=== PATIENT | female | born 1925 | race Caucasian/White ===

== ENCOUNTER 2016-05-29 12:07 | Emergency (ER) | payer OTHER ==
[~2016-05-29 12:07] MED LIST: ASPIRIN ADULT L81 MG PO; COREG6.25 MG PO; LASIX40 MG PO; LISINOPRIL10 MG PO; NITROSTAT0.4 MG SL; PLAVIX75 MG PO; SIMVASTATIN40 MG PO; ZOCOR40 MG
--- NOTE | 2016-05-29 15:41 | DIAGNOSTIC IMAGING REPORT ---
PROCEDURE: XR CHEST 1 VIEW INDICATION: CHEST PAIN TECHNIQUE: Portable AP view 03:05 p.m. COMPARISON: Chest 08/03/2010 FINDINGS: Lungs are clear. Heart is borderline. Pulmonary vasculature is normal. Thorax is normal. IMPRESSION: 1. No acute disease
--- NOTE | 2016-05-29 16:27 | ED ORDER SUMMARY ---
..... Patient: DEBRA WHITLOCK OrderSheet [facility] VisitID: [id number] [address] [place] [address] 89y, F Registration Date/Time: 05/29/2016 ORDER SHEET Weight: 62.5 kg (stated) Allergies: None GENERAL ORDERS: CBC w Diff Urgent (13:35 05/29/2016 DDean R.N. per protocol) (13:48 LNations ER Tech1) CMP Urgent (13:35 05/29/2016 DDean R.N. per protocol) (13:48 LNations ER Tech1) PTT Urgent (13:35 05/29/2016 DDean R.N. per protocol) (13:48 LNations ER Tech1) PT with INR Urgent (13:35 05/29/2016 DDean R.N. per protocol) (13:48 LNations ER Tech1) EKG - ER Stat (13:35 05/29/2016 DDean R.N. per protocol) (13:36 LNations ER Tech1) Chest 1V Urgent (15:00 05/29/2016 Sherie STEWART) (Ack 15:08 NHouse ER Tech1) (15:09 NHouse ER Tech1) BNP Urgent (15:05/29/2016 Sherie STEWART) (Ack 15:08 NHouse ER Tech1) (15:09 NHouse ER Tech1) CPK Urgent (15:05/29/2016 Sherie STEWART) (Ack 15:08 NHouse ER Tech1) (15:09 NHouse ER Tech1) Troponin-I Urgent (15:01 05/29/2016 Sherie STEWART) (Ack 15:08 NHouse ER Tech1) (15:09 NHouse ER Tech1) TSH Urgent (15:05/29/2016 Sherie STEWART) (Ack 15:08 NHouse ER Tech1) (15:09 NHouse ER Tech1) MEDICATION ORDERS: IV FLUIDS: IV Saline Lock (15:01 05/29/2016 Sherie STEWART) (Ack 15:18 DDean R.N.) (Cancelled: Other16:31 DDean R.N.) ORDER SHEET NOTES: [Electronically signed by Alena Chen R.N. (19:50 05/29/2016)] [Electronically signed by Ramon Coles MD (21:35 05/30/2016)] [Electronically locked/signed by Alena Chen R.N. (19:50 05/29/2016)]
--- NOTE | 2016-05-29 16:27 | ED ORDER SUMMARY ---
..... Patient: DEBRA WHITLOCK OrderSheet [facility] VisitID: [id number] [address] [place] [address] 89y, F Registration Date/Time: 05/29/2016 ORDER SHEET Weight: 62.5 kg (stated) Allergies: None GENERAL ORDERS: CBC w Diff Urgent (13:35 05/29/2016 DDean R.N. per protocol) (13:48 LNations ER Tech1) CMP Urgent (13:35 05/29/2016 DDean R.N. per protocol) (13:48 LNations ER Tech1) PTT Urgent (13:35 05/29/2016 DDean R.N. per protocol) (13:48 LNations ER Tech1) PT with INR Urgent (13:35 05/29/2016 DDean R.N. per protocol) (13:48 LNations ER Tech1) EKG - ER Stat (13:35 05/29/2016 DDean R.N. per protocol) (13:36 LNations ER Tech1) Chest 1V Urgent (15:00 05/29/2016 Sherie STEWART) (Ack 15:08 NHouse ER Tech1) (15:09 NHouse ER Tech1) BNP Urgent (15:05/29/2016 Sherie SETWART) (Ack 15:08 NHouse ER Tech1) (15:09 NHouse ER Tech1) CPK Urgent (15:05/29/2016 Sherie STEWART) (Ack 15:08 NHouse ER Tech1) (15:09 NHouse ER Tech1) Troponin-I Urgent (15:01 05/29/2016 Sherie STEWART) (Ack 15:08 NHouse ER Tech1) (15:09 NHouse ER Tech1) TSH Urgent (15:05/29/2016 Sherie STEWART) (Ack 15:08 NHouse ER Tech1) (15:09 NHouse ER Tech1) MEDICATION ORDERS: IV FLUIDS: IV Saline Lock (15:01 05/29/2016 Sherie STEWART) (Ack 15:18 DDean R.N.) (Cancelled: Other16:31 DDean R.N.) ORDER SHEET NOTES: [Electronically signed by Alena Chen R.N. (19:50 05/29/2016)] [Electronically signed by Ramon Coles MD (21:35 05/30/2016)] [Electronically locked/signed by Alena Chen R.N. (19:50 05/29/2016)]
--- NOTE | 2016-05-29 16:27 | ED NURSING NOTES ---
Clinical Report - Nurses [facility] [place] [address] 05/29/2016 12:08 Patient: DEBRA WHITLOCK TRIAGE Triage time 12:17. Acuity: LEVEL 3. Chief Complaint: CHEST PAIN. Alert. No acute distress. JESSICA COMA SCORE: [place] [address] Coma Scale: 15- eyes open spontaneously (4); best verbal response- oriented x 4 (5); best motor response- obeys commands (6). --12:30 Alisa Barrera R.N. 12:17 05/29/16. BP: 171/89. HR: 82. RR: 16. O2 saturation: 98%. Temp: 98 F. Pain level now: 0/10. --12:30 Alsia Barrera R.N. Weight: 62.5 kg stated. Height/Length: 60 inches Per Patient. BMI: 26.9. --12:27 Alisa Barrera R.N. Medications ASA Oral 81 mg, daily. --12:21 Alisa Barrera R.N. Carvedilol Phosphate ER Oral 6.25 mg, bid. --12:22 Alisa Barrera R.N. Clopidogrel Bisulfate Oral 75 mg. --12:22 Alisa Barrera R.N. Furosemide Oral 40 mg, daily. --12:23 Alisa Barrera R.N. Latanoprost Ophthalmic, daily. --12:24 Alisa Barrera R.N. Lisinopril Oral (Tablet 10 mg), daily. --12:26 Alisa Barrera R.N. MetFORMIN HCl Oral 500 mg, daily. --12:26 Alisa Barrera R.N. Nitroglycerin Translingual, PRN. --12:27 Alisa Barrera R.N. Simvastatin Oral (Tablet 40 mg), daily. --12:27 Alisa Barrera R.N. Tramadol HCL Oral 50 mg, as needed. --12:27 Alisa Barrera R.N. Allergies None. --12:19 Alisa Barrera R.N. History Arrived by private vehicle. Historian: patient. Unaccompanied. Primary physician (Tim). Onset. (5 days ago). ( had "a bad pain" last , saw her doctor today and they told her she had a "heart attack" and to come to hospital). SOCIAL HX: Former smoker. No alcohol use or drug use. FALL RISK ASSESSMENT: Fall risk assessment completed. No fall risk identified. FUNCTIONAL ASSESSMENT: Functional assessment: no impairments noted. LEARNING NEEDS ASSESSMENT: The learning needs assessment revealed no barriers. --12:30 Alisa Barrera R.N. PROBLEMS: Spondylolysis. Hypertension. Hyperlipidemia. Chronic systolic heart failure. --12:21 Alisa Barrera R.N. ADDITIONAL SURGERIES: Hysterectomy. --12:21 Alisa Barrera R.N. Assessment GENERAL / NEURO / PSYCH: Alert. Oriented X 4. Appears in no acute distress. Patient appears calm and cooperative. RESPIRATORY: Respirations not labored. SKIN: Skin is warm and dry. --12:30 Alisa Barrera R.N. Interventions ID band on patient. To treatment room. --12:30 Alisa Barrera R.N. PHYSICAL ASSESSMENT 12:17. Ambulatory to room. Patient gowned. ( placed in room by triage nurse). GENERAL / NEURO / PSYCH: Alert. Oriented X 4. Appears in no acute distress. RESPIRATORY: Respirations not labored. Chest nontender. CVS: Pulses within normal limits. GI / : Abdomen soft. SKIN: Skin is warm and dry. --13:32 Alena Chen R.N. NURSING PROGRESS NOTES EKG time: (1220). EKG was ordered, performed by a tech and shown to the ED physician. --12:47 Mony Yan, ER Tech1 late entry -12:17 pt placed in room by triage nurse. --13:33 Alena Chen R.N. 13:33 05/29/16. Care transferred and report received. --13:33 Alena Chen R.N. Patient ID band checked for patient name and birthdate: patient confirmed. Blood samples drawn from the left antecubital space by tech per protocol ; labeled in presence of the patient and sent to lab: rainbow set and red, green, purple and blue top. --13:49 FarrahMony, ER Tech1 14:25. ( escorted pt to bathroom, steady on feet. denies pain, sob or dizziness). --14:37 Alena Chen R.N. 14:25 05/29/16. BP: 125/65. HR: 90. RR: 18. O2 saturation: 97% on room air. Temp: deferred. Pain level now: 0/10. --14:37 Alena Chen R.N. ( Urine sample in lab in case needed). --14:59 Angelica Holliday, LANDRY Tech1 15:15 05/29/16. BP: 129/77. HR: 80. RR: 18. O2 saturation: 96% on room air. Temp: deferred. Pain level now: 0/10. Additional comments: watching t.v. in no distress. --16:01 Alena Chen R.N. 16:28 05/29/16. The patient is calm and resting quietly. Overall patient status is the same- she states feels the same. RESPIRATORY: No respiratory distress. SKIN: Skin is warm and dry. --16:28 Alisa Barrera R.N. 16:27 05/29/16. BP: 135/88. HR: 92. RR: 18. O2 saturation: 98% on room air. Pain level now: 0/10. --16:28 Alisa Barrera R.N. DISPOSITION / DISCHARGE 16:35. Condition at departure: unchanged and stable. No learning barriers present. Discharge instructions provided and reviewed with the patient. Reviewed medication(s) (nitro). Patient verbalized understanding. Written instructions provided in [place]. The patient was discharged home and unaccompanied at time of discharge. She left the Emergency Department ambulatory and via private vehicle. Patient driving. --19:49 Alena Chen R.N. 16:27 05/29/16. BP: 135/88. HR: 92. RR: 18. O2 saturation: 98% on room air. Temp: deferred. Pain level now: 0/10. --19:49 Alena Chen R.N. Locked/Released at 05/29/2016 19:50 by Alena Chen R.N.
--- NOTE | 2016-05-29 16:27 | ED CLINICAL REPORT ---
Clinical Report - Physicians/Mid Levels [facility] [address] [place] [address] 05/29/2016 12:08 Patient: DEBRA WHITLOCK Time Seen: 14:08 May 29 2016. Historian- patient. CPT: ER phys charges level 5 plus (#350280). EKG interpretation (#[id number]). HISTORY OF PRESENT ILLNESS Chief Complaint: CHEST PAIN. ( Onset. (5 days ago). ( had "a bad pain" last , saw her doctor today and they told her she had a "heart attack" and to come to hospital).). 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 She notes it went away after about 1 minute after resting. It has not returned since that time. Pt saw the mid-level at the office today and EKG showed some Q waves so patient sent to the ER with question of recent DC. and is now gone. At its maximum, severity described as moderate. When seen in the E.D., it was gone. Modifying factors- worsened by walking. Relieved by rest. No current or associated symptoms. Similar symptoms previously: None. Recent medical care: The patient was seen recently at another facility in the office (today). Seen for similar symptoms. Evaluation/treatment: EKG- Sent to the ER. REVIEW OF SYSTEMS No fever, sore throat, sinus drainage, nasal congestion or cough. No difficulty breathing, abdominal pain, nausea, vomiting or diarrhea. No black stools, bloody stools, chills, difficulty with urination or skin rash. No back pain, calf pain, headache or blackouts. The patient has had chest pain. No difficulty with ambulation. All systems otherwise negative, except as recorded above. PAST HISTORY Hypertension. Hyperlipidemia. Transient ischemic attack. Surgeries: Adenoidectomy. Had hysterectomy. Tonsillectomy. Medications: Tramadol HCL Oral 50 mg, as needed. Simvastatin Oral (Tablet 40 mg), daily. Nitroglycerin Translingual, PRN. MetFORMIN HCl Oral 500 mg, daily. Lisinopril Oral (Tablet 10 mg), daily. Latanoprost Ophthalmic, daily. Furosemide Oral 40 mg, daily. Clopidogrel Bisulfate Oral 75 mg. Carvedilol Phosphate ER Oral 6.25 mg, bid. ASA Oral 81 mg, daily. Allergies: None. SOCIAL HISTORY Former smoker. No alcohol use or drug use. ADDITIONAL NOTES The nursing notes have been reviewed. PHYSICAL EXAM Vital Signs: 05/29/2016 12:17 BP: 171/89. HR: 82. RR: 16. O2 saturation: 98%. Temp: 98 F. Pain level now: 0/10. Appearance: Alert. No acute distress. Eyes: Pupils equal, round and reactive to light. Eyes normal inspection. ENT: Ears normal. Nose normal. Pharynx normal. Neck: Normal inspection. Neck supple. CVS: Normal heart rate and rhythm. Heart sounds normal. Pulses normal. Respiratory: No respiratory distress. Breath sounds normal. Chest nontender. Abdomen: Soft and nontender. Bowel sounds normal. Back: Normal inspection. Skin: Skin warm. Normal skin color. No rash. Extremities: Extremities exhibit normal ROM. No lower extremity edema. Neuro: Oriented X 3. No motor deficit. No sensory deficit. Reflexes normal. LABS, X-RAYS, AND EKG EKG: Rate: 86. Atrial fibrillation. Normal QRS complex. Q waves in lead V1 and V2. T wave inversion in lead V1 and V2. No acute ST changes. EKG unchanged when compared with prior EKG. The study has been interpreted contemporaneously. The study has been independently viewed by me. The EKG appears to be a good tracing. Chest X-ray: Normal Chest X-Ray. Laboratory Tests: CBC w Diff: (JULI: 05/29/2016 13:45) ( MsgRcvd 05/29/2016 14:04) Final results Test Result Flag Units (Reference) WHITE BLOOD COUNT 7.7 K/uL (4.5-11.5) RED BLOOD COUNT 4.34 M/uL (4.00-5.20) HEMOGLOBIN 13.4 gm/dL (12.0-16.0) HEMATOCRIT 41.3 % (36.0-46.0) MEAN CELL VOLUME 95 fL (80-100) MEAN CORPUSCULAR HGB 31 pg (26-34) MEAN CORPUSCULAR HGB CONC 33 g/dL (31-37) RED CELL DISTRIBUTION WIDTH 13.6 % (11.6-14.8) PLATELET COUNT 236 K/uL (150-400) NEUTROPHIL % 64.8 % (50-75) LYMPH % 25.1 % (25-40) MONO % 8.0 % (3-14) EOSINOPHIL % 1.5 % (0-4) BASOPHIL % 0.6 % (0-2) PT with INR: (JULI: 05/29/2016 13:45) ( [facility] 05/29/2016 14:06) Final results Test Result Flag Units (Reference) INR 1.0 (0.8-1.2) Low Intensity Therapy: INR 1.5-2.0 PT range 18.5-23.1Mod.Intensity Therapy: INR 2.0-3.0 PT range 23.1-31.5High Intensity Therapy: INR 2.5-3.5 PT range 27.4-35.5High Intensity Therapy 2: INR 3.0-4.0 PT range 31.5-39.3 APTT 28 SECONDS (24-34) CPK: (JULI: 05/29/2016 13:45) ( [facility] 05/29/2016 15:27) Final results Test Result Flag Units (Reference) CPK 80 U/L (24-260) TROPONIN I <0.05 ng/mL (0.00-1.5) TROPONIN REFERENCE RANGE:<0.1 NEGATIVE0.1-1.5 INDETERMINANT>1.5 POSITIVE CMP: (JULI: 05/29/2016 13:45) ( [facility] 05/29/2016 14:10) Final results Test Result Flag Units (Reference) GLUCOSE 106 mg/dL (70-110) BUN 21 H mg/dL (7-18) CREATININE 1.1 mg/dL (0.6-1.3) Estimated GFR 49.82 mL/min Estimated GFR- >60 mL/min Note: Persistent reduction over 3 months in eGFR<60 mL/min/1.73 m2 defines CKD. Patients with eGFR values>=60 mL/min/1.73 m2 may also have CKD if evidence ofpersistent proteinuria. Additional information may be foundat www.kidney.org. SODIUM 143 mmol/L (136-145) POTASSIUM 4.0 mmol/L (3.5-5.1) CHLORIDE 106 mmol/L (98-107) CARBON DIOXIDE 29 mmol/L (21-32) CALCIUM 9.1 mg/dL (8.5-10.1) TOTAL PROTEIN 7.0 g/dL (6.4-8.2) ALBUMIN 3.8 g/dL (3.3-5.0) BILIRUBIN, TOTAL 0.9 mg/dL (0.0-1.0) ALKALINE PHOSPHATASE 81 U/L (46-116) AST (SGOT) 23 U/L (15-37) ALT (SGPT) 18 U/L (12-78) . PROGRESS AND PROCEDURES Course of Care: Pt had a 1 minute episode of chest pressure several days ago. She has Q waves in leads V1 and V2 but voltage is low . It would be unlikely to have a Q wave DC with 1 minute of symptoms. Will give NTG SL Rx and have patient use for recurrent symptoms. She will follow up in the next 2 days with reflow operator. Patient/family counseled. Disposition: Discharged. Condition: stable. CLINICAL IMPRESSION Atypical chest pain .12 lead EKG performed. INSTRUCTIONS No strenuous activity. Rest. Warnings: Further evaluation is necessary. GENERAL WARNINGS: Return or contact your physician immediately if your condition worsens or changes unexpectedly, if not improving as expected, or if other problems arise. Your Current Medications: CONTINUE TAKING THE FOLLOWING MEDICATIONS: ASA Oral : 81 mg daily. Carvedilol Phosphate ER Oral : 6.25 mg bid. Clopidogrel Bisulfate Oral : 75 mg. Furosemide Oral : 40 mg daily. Latanoprost Ophthalmic : daily. Lisinopril Oral : Tablet 10 mg, daily. MetFORMIN HCl Oral : 500 mg daily. Nitroglycerin Translingual : PRN. Simvastatin Oral : Tablet 40 mg, daily. Tramadol HCL Oral : 50 mg, prn. Prescription Medications: Nitrostat 0.4 mg: dissolve 1 tablet under tongue every 5 minutes as needed for chest pain. Dispense one hundred (100). No refills. Substitution is permissible. Follow-up: Return to the emergency department if not well. Follow up with a reflow operator in two days. Call for the next available appointment. Understanding of the discharge instructions verbalized by patient. (Electronically signed by Ramon Coles MD 05/30/2016 21:35)
--- NOTE | 2016-05-29 16:27 | ED CLINICAL REPORT ---
Clinical Report - Physicians/Mid Levels [facility] [address] [place] [address] 05/29/2016 12:08 Patient: DEBRA WHITLOCK Time Seen: 14:08 May 29 2016. Historian- patient. CPT: ER phys charges level 5 plus (#439185). EKG interpretation (#[id number]). HISTORY OF PRESENT ILLNESS Chief Complaint: CHEST PAIN. ( Onset. (5 days ago). ( had "a bad pain" last , saw her doctor today and they told her she had a "heart attack" and to come to hospital).). 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 She notes it went away after about 1 minute after resting. It has not returned since that time. Pt saw the mid-level at the office today and EKG showed some Q waves so patient sent to the ER with question of recent [place]. and is now gone. At its maximum, severity described as moderate. When seen in the E.D., it was gone. Modifying factors- worsened by walking. Relieved by rest. No current or associated symptoms. Similar symptoms previously: None. Recent medical care: The patient was seen recently at another facility in the office (today). Seen for similar symptoms. Evaluation/treatment: EKG- Sent to the ER. REVIEW OF SYSTEMS No fever, sore throat, sinus drainage, nasal congestion or cough. No difficulty breathing, abdominal pain, nausea, vomiting or diarrhea. No black stools, bloody stools, chills, difficulty with urination or skin rash. No back pain, calf pain, headache or blackouts. The patient has had chest pain. No difficulty with ambulation. All systems otherwise negative, except as recorded above. PAST HISTORY Hypertension. Hyperlipidemia. Transient ischemic attack. Surgeries: Adenoidectomy. Had hysterectomy. Tonsillectomy. Medications: Tramadol HCL Oral 50 mg, as needed. Simvastatin Oral (Tablet 40 mg), daily. Nitroglycerin Translingual, PRN. MetFORMIN HCl Oral 500 mg, daily. Lisinopril Oral (Tablet 10 mg), daily. Latanoprost Ophthalmic, daily. Furosemide Oral 40 mg, daily. Clopidogrel Bisulfate Oral 75 mg. Carvedilol Phosphate ER Oral 6.25 mg, bid. ASA Oral 81 mg, daily. Allergies: None. SOCIAL HISTORY Former smoker. No alcohol use or drug use. ADDITIONAL NOTES The nursing notes have been reviewed. PHYSICAL EXAM Vital Signs: 05/29/2016 12:17 BP: 171/89. HR: 82. RR: 16. O2 saturation: 98%. Temp: 98 F. Pain level now: 0/10. Appearance: Alert. No acute distress. Eyes: Pupils equal, round and reactive to light. Eyes normal inspection. ENT: Ears normal. Nose normal. Pharynx normal. Neck: Normal inspection. Neck supple. CVS: Normal heart rate and rhythm. Heart sounds normal. Pulses normal. Respiratory: No respiratory distress. Breath sounds normal. Chest nontender. Abdomen: Soft and nontender. Bowel sounds normal. Back: Normal inspection. Skin: Skin warm. Normal skin color. No rash. Extremities: Extremities exhibit normal ROM. No lower extremity edema. Neuro: Oriented X 3. No motor deficit. No sensory deficit. Reflexes normal. LABS, X-RAYS, AND EKG EKG: Rate: 86. Atrial fibrillation. Normal QRS complex. Q waves in lead V1 and V2. T wave inversion in lead V1 and V2. No acute ST changes. EKG unchanged when compared with prior EKG. The study has been interpreted contemporaneously. The study has been independently viewed by me. The EKG appears to be a good tracing. Chest X-ray: Normal Chest X-Ray. Laboratory Tests: CBC w Diff: (JULI: 05/29/2016 13:45) ( MsgRcvd 05/29/2016 14:04) Final results Test Result Flag Units (Reference) WHITE BLOOD COUNT 7.7 K/uL (4.5-11.5) RED BLOOD COUNT 4.34 M/uL (4.00-5.20) HEMOGLOBIN 13.4 gm/dL (12.0-16.0) HEMATOCRIT 41.3 % (36.0-46.0) MEAN CELL VOLUME 95 fL (80-100) MEAN CORPUSCULAR HGB 31 pg (26-34) MEAN CORPUSCULAR HGB CONC 33 g/dL (31-37) RED CELL DISTRIBUTION WIDTH 13.6 % (11.6-14.8) PLATELET COUNT 236 K/uL (150-400) NEUTROPHIL % 64.8 % (50-75) LYMPH % 25.1 % (25-40) MONO % 8.0 % (3-14) EOSINOPHIL % 1.5 % (0-4) BASOPHIL % 0.6 % (0-2) PT with INR: (JULI: 05/29/2016 13:45) ( [facility] 05/29/2016 14:06) Final results Test Result Flag Units (Reference) INR 1.0 (0.8-1.2) Low Intensity Therapy: INR 1.5-2.0 PT range 18.5-23.1Mod.Intensity Therapy: INR 2.0-3.0 PT range 23.1-31.5High Intensity Therapy: INR 2.5-3.5 PT range 27.4-35.5High Intensity Therapy 2: INR 3.0-4.0 PT range 31.5-39.3 APTT 28 SECONDS (24-34) CPK: (JULI: 05/29/2016 13:45) ( [facility] 05/29/2016 15:27) Final results Test Result Flag Units (Reference) CPK 80 U/L (24-260) TROPONIN I <0.05 ng/mL (0.00-1.5) TROPONIN REFERENCE RANGE:<0.1 NEGATIVE0.1-1.5 INDETERMINANT>1.5 POSITIVE CMP: (JULI: 05/29/2016 13:45) ( [facility] 05/29/2016 14:10) Final results Test Result Flag Units (Reference) GLUCOSE 106 mg/dL (70-110) BUN 21 H mg/dL (7-18) CREATININE 1.1 mg/dL (0.6-1.3) Estimated GFR 49.82 mL/min Estimated GFR- >60 mL/min Note: Persistent reduction over 3 months in eGFR<60 mL/min/1.73 m2 defines CKD. Patients with eGFR values>=60 mL/min/1.73 m2 may also have CKD if evidence ofpersistent proteinuria. Additional information may be foundat www.kidney.org. SODIUM 143 mmol/L (136-145) POTASSIUM 4.0 mmol/L (3.5-5.1) CHLORIDE 106 mmol/L (98-107) CARBON DIOXIDE 29 mmol/L (21-32) CALCIUM 9.1 mg/dL (8.5-10.1) TOTAL PROTEIN 7.0 g/dL (6.4-8.2) ALBUMIN 3.8 g/dL (3.3-5.0) BILIRUBIN, TOTAL 0.9 mg/dL (0.0-1.0) ALKALINE PHOSPHATASE 81 U/L (46-116) AST (SGOT) 23 U/L (15-37) ALT (SGPT) 18 U/L (12-78) . PROGRESS AND PROCEDURES Course of Care: Pt had a 1 minute episode of chest pressure several days ago. She has Q waves in leads V1 and V2 but voltage is low . It would be unlikely to have a Q wave [place] with 1 minute of symptoms. Will give NTG SL Rx and have patient use for recurrent symptoms. She will follow up in the next 2 days with car worker. Patient/family counseled. Disposition: Discharged. Condition: stable. CLINICAL IMPRESSION Atypical chest pain .12 lead EKG performed. INSTRUCTIONS No strenuous activity. Rest. Warnings: Further evaluation is necessary. GENERAL WARNINGS: Return or contact your physician immediately if your condition worsens or changes unexpectedly, if not improving as expected, or if other problems arise. Your Current Medications: CONTINUE TAKING THE FOLLOWING MEDICATIONS: ASA Oral : 81 mg daily. Carvedilol Phosphate ER Oral : 6.25 mg bid. Clopidogrel Bisulfate Oral : 75 mg. Furosemide Oral : 40 mg daily. Latanoprost Ophthalmic : daily. Lisinopril Oral : Tablet 10 mg, daily. MetFORMIN HCl Oral : 500 mg daily. Nitroglycerin Translingual : PRN. Simvastatin Oral : Tablet 40 mg, daily. Tramadol HCL Oral : 50 mg, prn. Prescription Medications: Nitrostat 0.4 mg: dissolve 1 tablet under tongue every 5 minutes as needed for chest pain. Dispense one hundred (100). No refills. Substitution is permissible. Follow-up: Return to the emergency department if not well. Follow up with a car worker in two days. Call for the next available appointment. Understanding of the discharge instructions verbalized by patient. (Electronically signed by Ramon Coles MD 05/30/2016 21:35)
--- NOTE | 2016-05-30 21:35 | ED DISCHARGE INSTRUCTIONS ---
Patient: DEBRA WHITLOCK General Instructions [facility] VisitID: [id number] [place] [address] 89y, F Registration Date/Time: 05/29/2016 Atypical chest pain .12 lead EKG performed. INSTRUCTIONS No strenuous activity. Rest. Warnings: Further evaluation is necessary. GENERAL WARNINGS: Return or contact your physician immediately if your condition worsens or changes unexpectedly, if not improving as expected, or if other problems arise. Your Current Medications: CONTINUE TAKING THE FOLLOWING MEDICATIONS: ASA Oral : 81 mg daily. Carvedilol Phosphate ER Oral : 6.25 mg bid. Clopidogrel Bisulfate Oral : 75 mg. Furosemide Oral : 40 mg daily. Latanoprost Ophthalmic : daily. Lisinopril Oral : Tablet 10 mg, daily. MetFORMIN HCl Oral : 500 mg daily. Nitroglycerin Translingual : PRN. Simvastatin Oral : Tablet 40 mg, daily. Tramadol HCL Oral : 50 mg, prn. Prescription Medications: Nitrostat 0.4 mg: dissolve 1 tablet under tongue every 5 minutes as needed for chest pain. Dispense one hundred (100). No refills. Substitution is permissible. Follow-up: Return to the emergency department if not well. Follow up with a marketing automation specialist in two days. Call for the next available appointment. Understanding of the discharge instructions verbalized by patient. ADDITIONAL INFORMATION Chest Pain, Uncertain Cause Chest pain can happen for a number of reasons. Sometimes the cause can not be determined. If yourcondition does not seem serious, and your pain does not appear to be coming from your heart, your doctor may recommend watching it closely. Sometimes the signs of a serious problem take more time to appear. Therefore, watch for the warning signs listed below. Home care After your visit, follow these recommendations: Rest today and avoid strenuous activity. Take any prescribed medicine as directed. Follow-up care Follow up with your doctor or this facility as instructed or if you do not start to feel better within 24 hours. Call 911 Get immediate medical attention if any of the following occur: A change in the type of pain: if it feels different, becomes more severe, lasts longer, or begins to spread into your shoulder, arm, neck, jaw or back Shortness of breath or increased pain with breathing Weakness, dizziness, or fainting Rapid heart beat Get prompt medical attention Call your doctor right away if any of the following occur: Cough with dark colored sputum (phlegm) or blood Fever of 100.4F(38C) or higher, or as directed by your health care provider Swelling, pain or redness in one leg You have been given the following additional information: Chest Pain, Uncertain Cause No strenuous activity. Rest. (Electronically signed by Ramon Coles MD 05/30/2016 21:35)
--- NOTE | 2016-05-30 21:35 | ED DISCHARGE INSTRUCTIONS ---
Patient: DEBRA WHITLOCK General Instructions [facility] VisitID: [id number] [place] [address] 89y, F Registration Date/Time: 05/29/2016 Atypical chest pain .12 lead EKG performed. INSTRUCTIONS No strenuous activity. Rest. Warnings: Further evaluation is necessary. GENERAL WARNINGS: Return or contact your physician immediately if your condition worsens or changes unexpectedly, if not improving as expected, or if other problems arise. Your Current Medications: CONTINUE TAKING THE FOLLOWING MEDICATIONS: ASA Oral : 81 mg daily. Carvedilol Phosphate ER Oral : 6.25 mg bid. Clopidogrel Bisulfate Oral : 75 mg. Furosemide Oral : 40 mg daily. Latanoprost Ophthalmic : daily. Lisinopril Oral : Tablet 10 mg, daily. MetFORMIN HCl Oral : 500 mg daily. Nitroglycerin Translingual : PRN. Simvastatin Oral : Tablet 40 mg, daily. Tramadol HCL Oral : 50 mg, prn. Prescription Medications: Nitrostat 0.4 mg: dissolve 1 tablet under tongue every 5 minutes as needed for chest pain. Dispense one hundred (100). No refills. Substitution is permissible. Follow-up: Return to the emergency department if not well. Follow up with a public address systems mechanic in two days. Call for the next available appointment. Understanding of the discharge instructions verbalized by patient. ADDITIONAL INFORMATION Chest Pain, Uncertain Cause Chest pain can happen for a number of reasons. Sometimes the cause can not be determined. If yourcondition does not seem serious, and your pain does not appear to be coming from your heart, your doctor may recommend watching it closely. Sometimes the signs of a serious problem take more time to appear. Therefore, watch for the warning signs listed below. Home care After your visit, follow these recommendations: Rest today and avoid strenuous activity. Take any prescribed medicine as directed. Follow-up care Follow up with your doctor or this facility as instructed or if you do not start to feel better within 24 hours. Call 911 Get immediate medical attention if any of the following occur: A change in the type of pain: if it feels different, becomes more severe, lasts longer, or begins to spread into your shoulder, arm, neck, jaw or back Shortness of breath or increased pain with breathing Weakness, dizziness, or fainting Rapid heart beat Get prompt medical attention Call your doctor right away if any of the following occur: Cough with dark colored sputum (phlegm) or blood Fever of 100.4F(38C) or higher, or as directed by your health care provider Swelling, pain or redness in one leg You have been given the following additional information: Chest Pain, Uncertain Cause No strenuous activity. Rest. (Electronically signed by Ramon Coles MD 05/30/2016 21:35)
--- NOTE | 2016-05-30 21:36 | ED MED RECONCILIATION SUMMARY ---
Patient: DEBRA WHITLOCK Medication Reconciliation Report [facility] VisitID: [id number] [address] [place] [address] 89y, F Registration Date/Time: 05/29/2016 Weight: 62.5 kg Height/Length: 60 in. BMI: 26.9 ALLERGIES: None The patient's Home Medications are listed below: CONTINUE TAKING THE FOLLOWING MEDICATIONS: ASA Oral 81 mg, daily Carvedilol Phosphate ER Oral 6.25 mg, bid Clopidogrel Bisulfate Oral 75 mg Furosemide Oral 40 mg, daily Latanoprost Ophthalmic, daily Lisinopril Oral (10 mg), daily MetFORMIN HCl Oral 500 mg, daily Nitroglycerin Translingual, PRN Simvastatin Oral (40 mg), daily Tramadol HCL Oral 50 mg The source(s) of the original Home Medication information: Not obtained. The following Medications were given to the patient in the Emergency Department: None. The following Medications were prescribed to the patient: Nitrostat 0.4 mg: dissolve 1 tablet under tongue every 5 minutes as needed for chest pain. Dispense one hundred (100). No refills. Substitution is permissible. -- Ramon Coles MD
--- NOTE | 2016-05-30 21:36 | ED MAR SUMMARY ---
..... Medication Administration Record [facility] [address] [place], [place] [id number] Patient: DEBRA WHITLOCK Visit ID: [id number] 89y, F Weight: 62.5 kg Height/Length: 60 in BMI: 26.9 ALLERGIES: None
--- NOTE | 2016-05-30 21:36 | ED MAR SUMMARY ---
..... Medication Administration Record [facility] [address] [place] [place], [place] [id number] Patient: DEBRA WHITLOCK Visit ID: [id number] 89y, F Weight: 62.5 kg Height/Length: 60 in BMI: 26.9 ALLERGIES: None
--- NOTE | 2016-05-30 21:36 | ED MED RECONCILIATION SUMMARY ---
Patient: DEBRA WHITLOCK Medication Reconciliation Report [facility] VisitID: [id number] [address] [place] [address] 89y, F Registration Date/Time: 05/29/2016 Weight: 62.5 kg Height/Length: 60 in. BMI: 26.9 ALLERGIES: None The patient's Home Medications are listed below: CONTINUE TAKING THE FOLLOWING MEDICATIONS: ASA Oral 81 mg, daily Carvedilol Phosphate ER Oral 6.25 mg, bid Clopidogrel Bisulfate Oral 75 mg Furosemide Oral 40 mg, daily Latanoprost Ophthalmic, daily Lisinopril Oral (10 mg), daily MetFORMIN HCl Oral 500 mg, daily Nitroglycerin Translingual, PRN Simvastatin Oral (40 mg), daily Tramadol HCL Oral 50 mg The source(s) of the original Home Medication information: Not obtained. The following Medications were given to the patient in the Emergency Department: None. The following Medications were prescribed to the patient: Nitrostat 0.4 mg: dissolve 1 tablet under tongue every 5 minutes as needed for chest pain. Dispense one hundred (100). No refills. Substitution is permissible. -- Ramon Coles MD
== END 2016-05-29 19:54 | disposition home or self-care (01) ==
LOC: ED SRH 12:07
DX: R07.89 Other chest pain (principal); I50.22 Chronic systolic (congestive) heart failure; I10 Essential (primary) hypertension; Z79.899 Other long term (current) drug therapy; Z87.891 Personal history of nicotine dependence
CPT/HCPCS: 90074; 90100; 90616; 91320; 92610; 93140; 94001; 94060; 95059